=== PATIENT | male | born 1940 | race Caucasian/White ===

== ENCOUNTER → 2018-03-07 12:43 | Outpatient (CLI) | payer MEDICARE, SELFPAY ==
[2018-03-07 13:59] LABS: Absolute Lymphocyte Count 2.11 X10^3/ul (0.83-4.51); Absolute Neutrophil Count 2.1 X10^3/uL (2.0-7.7); Basophil# 0.02 X10^3/uL; Basophil% 0.4 % (0-1); Eosinophil# 0.12 X10^3/uL; Eosinophils% 2.4 % (0-5); Hematocrit 40.4 % (40-54); Hemoglobin 13.3 g/dl (13.0-16.5); Lymphocyte # 2.11 X10^3/ul (4.0); Lymphocyte % 42.5 % (19-41); Mean Corp Hgb Conc 32.9 g/gl (32-36); Mean Corpuscular Hgb 30.4 pg (27.0-32.0); Mean Corpuscular Volume 92.4 fL (80-94); Mean Platelet Vol. 9.1 fl (6.2-12.0); Monocyte# 0.65 X10^3/uL; Monocyte% 13.1 % (0-10); Neutrophil # 2.07 X10^3/uL (2.7-7.7); Neutrophil % 41.6 % (47-70); Platelet Count 349 K/mm3 (150-450); RBC Distribution Width CV 11.7 % (11.6-14.6); RBC Distribution Width SD 39.5 fl (35.1-43.9); Red Blood Count 4.37 M/mm3 (4.6-6.2)
[2018-03-07 14:05] LABS: POSITIVE COUNT NO; POSITIVE DIFFERENTIAL NO; POSITIVE MORPHOLOGY NO
[2018-03-07 14:11] LABS: Anion Gap 9 (5-15); BUN 23 mg/dL (7-18); BUN/Creat Ratio 24.5 RATIO (10-20); Calcium,Total 9.6 mg/dL (8.5-10.1); Chloride 104 mmol/L (98-107); Creatinine, Serum 0.94 mg/dL (0.70-1.30); EST Glomerular Filtration Rate 83 mL/min (>60); Est Glom Filt Rate - Afr Amer 100 mL/min (>60); Glucose 132 mg/dL (74-106); Potassium 4.8 mmol/L (3.5-5.1); Sodium Level 140 mmol/L (136-145)
== END ==
PROVIDERS: Visit Provider Physician Assistant Medical
DX: R06.00 Dyspnea, unspecified (principal); I48.91 Unspecified atrial fibrillation; R55 Syncope and collapse; I10 Essential (primary) hypertension
CPT/HCPCS: 36415; 80048; 85025

== ENCOUNTER → 2018-03-12 08:58 | Outpatient (CLI) | payer MEDICARE, SELFPAY | PROVIDERS: Visit Provider Physician Assistant Medical | DX: I48.91 Unspecified atrial fibrillation (principal); I10 Essential (primary) hypertension; R55 Syncope and collapse | CPT/HCPCS: 93225; 93226 ==

== ENCOUNTER → 2018-03-21 07:29 | Outpatient (CLI) | payer MEDICARE, SELFPAY | PROVIDERS: Visit Provider Physician Assistant Medical | DX: R55 Syncope and collapse (principal); I48.91 Unspecified atrial fibrillation; I10 Essential (primary) hypertension | CPT/HCPCS: 93880 ==

== ENCOUNTER → 2018-04-16 14:30 | Outpatient (CLI) | payer MEDICARE, SELFPAY ==
--- NOTE | 2018-04-16 14:32 | CT_ITS ---
STUDY: CTA NECK WITH CONTRAST REASON FOR EXAM: Male, 78 years old. Carotid stenosis RADIATION DOSAGE (If Supplied By Facility): CTDIvol = ( 21.78 ) mGy, DLP = ( 612.35 ) mGycm TECHNIQUE: CT angiography with multi-detector data acquisition was performed from the aortic arch to the skull base following intravenous administration of 100 ml of Isovue 370 contrast. MIP images were reconstructed from the axial data set. Post-processing of the angiographic images was performed, with multiplanar reformation and 3D reconstruction. Individualized dose optimization techniques were used for this CT. COMPARISON: None. FINDINGS: AORTIC ARCH: There is a normal-appearing takeoff of the innominate and the left carotid artery. The vertebral artery on the left side has its takeoff from the aorta. The left subclavian artery also has its takeoff from the aortic arch in its expected location. RIGHT CAROTID ARTERIES: There is atherosclerotic plaque formation of the common carotid artery, but without a hemodynamically significant stenosis. There is moderate atherosclerotic plaque formation with moderate narrowing of the right carotid bulb. There is mild atherosclerotic plaque formation of the origin of the right internal carotid artery with less than 50% cross sectional diameter stenosis. There is atherosclerotic tortuous elongation of the cervical portion of the right internal carotid artery. There is moderate atherosclerotic plaque formation of the origin of the right external carotid artery with an estimated stenosis of 50-69% stenosis. LEFT CAROTID ARTERIES: There is peripheral soft plaque concentrically around the lumen. There is plaque formation and soft plaque. There is trace contrast within the proximal internal carotid artery lumen with peripheral calcification and then subsequent obstruction. No contrast flow is seen throughout the left carotid artery. There is trace visualize contrast flowing through the left-sided petrous with flow in the left side cavernous carotid. Normal visualized cervical portion of the left internal carotid artery is obstructed. There is moderate atherosclerotic plaque formation of the origin of the left external carotid artery with an estimated stenosis of 50-69% stenosis. VERTEBRAL ARTERIES: As mentioned above the left-sided vertebral artery has its takeoff from the aorta appears to be well contrasted to the level of the foramen. There is a diminutive appearance of the distal left vertebral artery. There is partial calcification of the right-sided vertebral artery. There is good contrast enhancement of the basilar artery. There is a visualized right-sided P-comm well contrasted. The left side peak may be diminutive or not visualized. There is a diminutive appearance of the left-sided A1 segment. There is contrasted appearance of the bilateral MCA arteries. There is severe narrowing of the left-sided petrous carotid artery partially obstructed and partial obstruction of the distal left petrous and proximal left cavernous carotid artery. 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 Recommend dedicated MRI/MRA of the brain when appropriate. Less than 50% stenosis of the right internal carotid artery Bilateral atherosclerotic disease of the external carotid arteries Narrowed appearance of the distal left vertebral artery or dominant right vertebral artery. N.B. : The above information has been verbally conveyed by Jennifer Ansari MD to [facility] [phone], [facility], on 04/16/2018 16:47:18 (ET). Electronically Signed: Jennifer Ansari MD at 15:58 EDT Tel , Service support ,
== END ==
PROVIDERS: Visit Provider Surgery Vascular Surgery
DX: I65.23 Occlusion and stenosis of bilateral carotid arteries (principal)
CPT/HCPCS: 70498; Q9967

== ENCOUNTER → 2019-02-28 06:46 | Outpatient (CLI) | payer MEDICARE, SELFPAY ==
[2019-01-16 14:19] VITALS: BMI 36.1
[2019-02-28 07:41] LABS: AST(SGOT) 16 U/L (15-37); Alanine Aminotransfer ALT/SGPT 32 U/L (16-61); Albumin, Serum 3.9 g/dL (3.2-5.0); Alkaline Phosphatase 77 U/L (45-117); Anion Gap 8 (5-15); BUN 29 mg/dL (7-18); BUN/Creat Ratio 25.7 RATIO (10-20); Bilirubin, Direct 0.12 mg/dL (0.00-0.30); Calcium,Total 9.3 mg/dL (8.5-10.1); Chloride 106 mmol/L (98-107); Cholesterol 241 mg/dL (200); Creatinine, Serum 1.13 mg/dL (0.70-1.30); EST Glomerular Filtration Rate 67 mL/min (>60); Est Glom Filt Rate - Afr Amer 81 mL/min (>60); Globulin 3.8 g/dL (2.2-4.2); Glucose 126 mg/dL (74-106); High Density Lipoprotein 39 mg/dL; Potassium 4.9 mmol/L (3.5-5.1); Protein, Total 7.7 g/dL (6.4-8.2); Sodium Level 138 mmol/L (136-145); Triglycerides 282 mg/dL; Very Low Density Lipoprotein 56 mg/dL (5-40)
== END ==
PROVIDERS: Referring Provider Internal Medicine Cardiovascular Disease; Visit Provider Internal Medicine Cardiovascular Disease
DX: E11.9 Type 2 diabetes mellitus without complications (principal); E78.5 Hyperlipidemia, unspecified
CPT/HCPCS: 36415; 80048; 80061; 80076

== ENCOUNTER 2019-04-10 19:04 | Observation (INO) | payer MEDICARE, SELFPAY ==
[2019-01-16 14:19] VITALS: BMI 36.1
--- NOTE | 2019-04-10 19:03 | HP.PCM_ITS ---
Problem List (1) Chest pain Status: Acute Qualifiers: Chest pain type: unspecified Qualified Code(s): R07.9 - Chest pain, unspecified (2) Diabetes mellitus, type II Status: Chronic Qualifiers: Diabetes mellitus jail insulin use: without jail use Diabetes mellitus complication status: with other specified complication Qualified Code(s): E11.69 - Type 2 diabetes mellitus with other specified complication (3) Paroxysmal atrial fibrillation Status: Chronic (4) Essential hypertension Status: Chronic (5) RBBB (right bundle branch block) Status: Chronic (6) HLD (hyperlipidemia) Status: Chronic Qualifiers: Hyperlipidemia type: unspecified Qualified Code(s): E78.5 - Hyperlipidemia, unspecified History of Present Illness Date of Admission: 04/10/19 Chief Complaint: Chest pain The patient is a 79 y/o M w/ PMHx: HTN, HLD, Diabetes mellitus type II, PAF on eliquis s/p prior successful cardioversion following w/ ROBI Marin who presents to the [facility] as direct admission on 04/10/19 from [facility] ED with history of onset on day of presentation midsternal nonradiating chest tightness described at that time as 4 out of 10 in severity with no associated nausea, emesis, dyspnea or diaphoresis, resolving after minutes after falling his round of golf in the morning however it returned in the evening following dinner with similar presentation however the tightness was more severe rated 6 out of 10 at that time with radiation to the left shoulder and left scapular region prompting eventual ED presentation. Patient does now recall that in the past and intermittently he has had some mild chest tightness but not sure if it is related to activity and this is been ongoing for many years. Work-up in the outside hospital ED included T 36.6, heart rate 82, BP 157/70, respiratory rate 14, 96% on room air, CBC with W BC 8.2, hemoglobin 15, platelet 272 without shift, BMP with sodium 138, potassium 4.1, BUN/creatinine 27/2.22, glucose 180, < 0.020, CXR without acute cardiopulmonary findings, EKG w/ SR with T-wave inversions III, aVR, aVL, aVF with RBBB. In the ED OSH patient administered ASA, NS. Past Medical History Past Medical History (Chronic Problems): Chronic Problems (Last Reviewed 01/16/19 @ 14:22 by Carmina Corona) Diabetes mellitus, type II (Chronic) Paroxysmal atrial fibrillation (Chronic) Essential hypertension (Chronic) RBBB (right bundle branch block) (Chronic) HLD (hyperlipidemia) (Chronic) Medical History: Medical History (Last Reviewed 01/16/19 @ 14:22 by Carmina Corona) Paroxysmal atrial fibrillation (Acute) I48.0 Essential hypertension (Chronic) I10 RBBB (right bundle branch block) (Acute) I45.10 HLD (hyperlipidemia) (Chronic) E78.5 GERD (gastroesophageal reflux disease) K21.9 Type 2 diabetes mellitus E11.9 HTN (hypertension) (Inactive) I10 Persistent atrial fibrillation (Inactive) I48.1 Allergies influenza virus vaccine qs 2015- (36 months up) [From Fluarix Quad 0571-1788 (PF)] Allergy (Severe, Verified 01/16/19 14:19) Other INJECTION SITE REACTION, TOLD NOT TO GET AGAIN. hydrochlorothiazide Allergy (Unknown, Verified 01/16/19 14:19) Unknown Ftodumt-Xbe-Scr Reductase Inhibitor Adverse Reaction (Severe, Verified 01/16/19 14:19) myalgias allopurinol Adverse Reaction (Verified 01/16/19 14:19) Flu like symptoms Home Medications: Ambulatory Orders Medication Instructions Recorded Cholecalciferol (Vitamin D3) 1,000 unit PO DAILY 02/28/17 [Vitamin D3] Fish Oil/Borage/Flax/Om3,6,9 1 1 tab PO DAILY 02/28/17 [[place] 3-6-9 Complex Softgel] Melatonin 5 mg PO PRN PRN 02/28/17 Multivit-Min/FA/Lycopen/Lutein 1 ea PO DAILY 02/28/17 [Centrum Silver Tablet] Apixaban [Eliquis] 5 mg PO BID tab 03/02/17 Pantoprazole Sodium [Protonix] 40 mg PO DAILY tab 03/02/17 Acetaminophen [Pain Relief] 325 mg PO Q4H PRN 03/23/17 naproxen sodium 220 mg tablet 220 mg PO BID PRN 12/21/17 diltiazem CD 120 mg 120 mg PO BID #180 cap 08/30/18 capsule,extended release 24 hr lisinopril 20 mg tablet 20 mg PO BID #60 tab 02/12/19 colestipol 1 gram tablet 1 g PO BID #60 tab 03/01/19 flecainide 50 mg tablet 50 mg PO Q12H #180 tab 04/08/19 Surgical History: Surgical History (Last Reviewed 01/16/19 @ 14:22 by Carmina Corona) History of tonsillectomy Z90.89 Surgical History: - - Tonsillectomy. Psychiatric History: No pertinent psych hx Lives: Spouse/ Significant Other Smoking Status: Former smoker - Patient smoked very briefly in college, pipe use at that time, not since. Tobacco Use: Non-smoker Alcohol: None Drugs: None - *Family History Paternal Family History: Family History (Last Reviewed 01/16/19 @ 14:22 by Carmina Corona) Father CVA (cerebral vascular accident) Presence of permanent cardiac pacemaker Mother CVA (cerebral vascular accident) Diabetes History Items: Heart Disease, Stroke Maternal Family History: Family History (Last Reviewed 01/16/19 @ 14:22 by Carmina Corona) Father CVA (cerebral vascular accident) Presence of permanent cardiac pacemaker Mother CVA (cerebral vascular accident) Diabetes History Items: Diabetes, Stroke Review of Systems Constitutional: Reports: Anorexia - Patient notes that he has been drinking Gatorade today but has had decreased water intake and has had prolonged heat exposure playing golf., Malaise, Weakness, Fatigue. Denies: Chills, Fever, Weight Change HEENT: Denies: Head Aches, Sinus Congestion, Sinus Drainage Cardiovascular: Reports: Chest Pain, Chest Tightness. Denies: Palpitations Respiratory: Denies: Cough, Shortness of breath at rest, Sputum production Gastrointestinal: Denies: Abdominal Pain, Nausea, Vomiting Genitourinary: Denies: Dysuria Musculoskeletal: Denies: Joint Pain, Joint Tenderness Skin: Denies: Rash, Wounds Neurological: Denies: Numbness, Tingling, Focal weakness Psychiatric: Denies: Anxiety, Depression, Homicidal Ideations, Suicidal Ideations Hematologic/ Lymphatic: Reports: Easy Bruising, Easy Bleeding VTE Information - Inpt Only VTE Present on Admission: No VTE Mechan Device Prophylaxis: SCD's VTE Pharm Prophylaxis ordered?: No Reason prophylaxis not ordered:: Treatment Not Indicated - Continue home Eliquis regimen. Patient Problems: Active and Suspected Problems (Last Reviewed 01/16/19 @ 14:22 by Carmina Corona) Chest pain (Acute) Subjective: Seated upright in the PCU bed side chair, no acute distress, no current chest tightness. Objective: Physical Examination: General: awake, alert, oriented x 3 and cooperative, seated upright in the PCU bedside chair, no current chest tightness. Skin: Very tanned skin color, turgor, no icterus, cyanosis. HEENT: AT/NC, EOMI, PERRLA, widely dry MM, no carotid bruits or JVD noted. Lungs: CTA bilaterally, moderate effort, mild decrease BL bases, no rales, ronchi or wheezing. Heart: Regular rate and rhythm; no gallop, rub audible. Abdomen: soft, NTTP, ND, normal BS, no HSM. Extremities: no cyanosis, clubbing, or edema. Neurological: patient awake, alert, oriented x 3; cognitive function intact; pupils equally reactive to light and accomodation; cranial nerves II-XII grossly normal, moving all 4 extremities, no focal deficits, strength preserved. Psychiatric: affect appears normal, no acute evidence of depressive or anxiety feelings. - Physical Exam Body Mass Index (BMI) 36.1 Assessment/Plan All Active Problems (Last Reviewed 01/16/19 @ 14:22 by Carmina Corona) Chest pain (Acute) The patient is a 79 y/o M w/ PMHx: HTN, HLD, Diabetes mellitus type II, PAF on eliquis s/p prior successful cardioversion following w/ ROBI Marin who presents to the [facility] as direct admission on 04/10/19 from [facility]SH ED with history of onset on day of presentation midsternal nonradiating chest tightness described at that time as 4 out of 10 in severity with no associated nausea, emesis, dyspnea or diaphoresis, resolving after minutes after falling his round of golf in the morning however it returned in the evening following dinner with similar presentation however the tightness was more severe rated 6 out of 10 at that time with radiation to the left shoulder and left scapular region prompting eventual ED presentation. 1. Chest Pain: Work-up in the outside hospital ED included T 36.6, heart rate 82, BP 157/70, respiratory rate 14, 96% on room air, CBC with W BC 8.2, hemoglobin 15, platelet 272 without shift, BMP with sodium 138, potassium 4.1, BUN/creatinine 27/2.22, glucose 180, < 0.020, CXR without acute cardiopulmonary findings, EKG w/ SR with T-wave inversions III, aVR, aVL, aVF with RBBB. Will admit to PCU, place on a monitored bed to assure no acute myocardial infarction with serial cardiac enzymes and EKGs. Patient is unable to perform exercise clear to gout he notes thus will proceed with AM nuclear stress testing if the aforementioned evaluation remains stable and unchanged. ASA, NG, morphine. FLP in AM. Mag pending. 2. Acute kidney injury: Secondary to likely poor intake, heat exposure today. Admission BUN/Cr 27/2.22 with baseline prior noted to be normal. Will hydrate, hold nephrotoxic medications and repeat chemistry in AM. If no improvement would plan FeNa and renal ultrasound assessment. 3. Diabetes mellitus type II: Not on regimen, hemoglobin A1c requested, nutrition consultation for education and teaching, prior to n.p.o. we will continue ADA diet, accu checks w/ ISS. 4. PAF: Currently in sinus rhythm, continue home Eliquis, diltiazem, flecainide. 5. Hypertension: Continue home regimen including diltiazem, holding lisinopril given acute kidney injury, PRN hydralazine. 6. Hyperlipidemia: Not on regimen. FLP in a.m. 7. GERD: Continue home Protonix regimen. 8. DVT prophylaxis: SCDs, continue home Eliquis regimen. Code Visit OBSV E&M: 28009 Initial observation care L3
--- NOTE | 2019-04-10 19:04 | EKG12_ITS ---
Test Reason : CP ADMIT Blood Pressure : / mmHG Vent. Rate : 071 BPM Atrial Rate : 071 BPM P-R Int : 330 ms QRS Dur : 162 ms QT Int : 430 ms P-R-T Axes : 050 001 001 degrees QTc Int : 467 ms Sinus rhythm with 1st degree A-V block with Premature atrial complexes with Aberrant conduction or P VC Right bundle branch block Abnormal ECG When compared with ECG of 24-MAR-2017 12:47, Aberrant conduction is now Present Confirmed by SANDEEP STONE, JACI ([id number]), general expeditor LALA ARTHUR ([id number] on 04/15/2019 4:08:07 PM Referred By: Med Brown Confirmed By:VICKI HOPKINS MD
[2019-04-10 19:43] VITALS: BMI 37.2
[2019-04-10 19:52] VITALS: BMI 37.2
[2019-04-10 19:55] VITALS: PULSE 74
[2019-04-10] MEDS: 0.9% Normal Saline 1,000 ML 125 ML IV (20:02)
[2019-04-10 20:03] VITALS: BP 153/83; PULSE 76; RESP 18; TEMP 36.6; O2SAT 95
[2019-04-10 20:05] VITALS: O2SAT 95
[2019-04-10 20:36] VITALS: O2SAT 95
[2019-04-10 20:53] LABS: Magnesium 2.2 mg/dL (1.6-2.6)
[2019-04-10 21:15] LABS: Bedside Glucose 149 mg/dL (70-110)
[2019-04-10 21:16] LABS: Hemoglobin A1c 6.4 % (4.2-6.3)
[2019-04-11] VITALS (7 sets, daily range): BP systolic 151–174; BP diastolic 66–79; PULSE 58–76; RESP 16–18; TEMP 36.4–36.7; O2SAT 95–97
[2019-04-11 02:19] LABS: Absolute Lymphocyte Count 2.08 X10^3/uL (0.83-4.51); Absolute Neutrophil Count 2.2 X10^3/uL (2.0-7.7); Basophil# 0.03 X10^3/uL; Basophil% 0.6 % (0-1); Eosinophil# 0.17 X10^3/uL; Eosinophils% 3.3 % (0-5); Hematocrit 41.7 % (40-54); Hemoglobin 14.2 g/dL (13.0-16.5); Lymphocyte # 2.08 X10^3/ul (4.0); Lymphocyte % 40.5 % (19-41); Mean Corp Hgb Conc 34.1 g/dL (32-36); Mean Corpuscular Hgb 31.6 pg (27.0-32.0); Mean Corpuscular Volume 92.7 fL (80-94); Monocyte# 0.66 X10^3/uL; Monocyte% 12.8 % (0-10); NRBC Flagged by Analyzer 0 % (0-5); Neutrophil # 2.19 X10^3/uL (2.7-7.7); Neutrophil % 42.6 % (47-70); Platelet Count 228 K/mm3 (150-450); RBC Distribution Width SD 41.7 fl (35.1-43.9); White Blood Count 5.1 K/mm3 (4.4-11.0)
[2019-04-11 02:34] LABS: Anion Gap 5 (5-15); BUN 26 mg/dL (7-18); BUN/Creat Ratio 16.4 RATIO (10-20); Calcium,Total 8.8 mg/dL (8.5-10.1); Chloride 110 mmol/L (98-107); Cholesterol 208 mg/dL (200); Creatinine, Serum 1.59 mg/dL (0.70-1.30); EST Glomerular Filtration Rate 45 mL/min (>60); Est Glom Filt Rate - Afr Amer 54 mL/min (>60); Estimated Creatinine Clearance 37.67 ml/min; Glucose 124 mg/dL (74-106); High Density Lipoprotein 37 mg/dL; Potassium 3.9 mmol/L (3.5-5.1); Sodium Level 140 mmol/L (136-145); Triglycerides 161 mg/dL; Very Low Density Lipoprotein 32 mg/dL (5-40)
[2019-04-11] MEDS: hydrALAZINE 20 MG/ML Vial 10 MG IV (02:51)
[2019-04-11] MEDS: 0.9% NaCl Peripheral Flush Adult/Peds IV (02:52)
[2019-04-11] MEDS: 0.9% Normal Saline 1,000 ML 125 ML IV (04:02)
[2019-04-11] MEDS: Flecainide 100 MG Tablet 50 MG PO (05:33)
[2019-04-11] MEDS: Aspirin E.C. 81 MG Tablet PO (05:33)
[2019-04-11 05:46] LABS: Bedside Glucose 141 mg/dL (70-110)
--- NOTE | 2019-04-11 05:55 | EKG12_ITS ---
Test Reason : AM EKG Blood Pressure : / mmHG Vent. Rate : 057 BPM Atrial Rate : 057 BPM P-R Int : 294 ms QRS Dur : 180 ms QT Int : 466 ms P-R-T Axes : 052 003 -04 degrees QTc Int : 453 ms Sinus bradycardia with 1st degree A-V block with occasional Premature ventricular complexes Right bundle branch block Inferior infarct , age undetermined Abnormal ECG When compared with ECG of 10-APR-2019 19:58, MANUAL COMPARISON REQUIRED, DATA IS UNCONFIRMED Confirmed by SANDEEP STONE, JACI ([id number]), acquisitions editor LALA ARTHUR ([id number] on 04/15/2019 4:09:23 PM Referred By: Med Brown Confirmed By:VICKI HOPKINS MD
--- NOTE | 2019-04-11 08:56 | STRESSREP ---
Stress Test Report Date: [04/11/2019] Procedure: Pharmacologic stress nuclear imaging study Indications: Chest pain Consent: Per the patient Procedure: The patient underwent pharmacologic (Regadenoson) evaluation with a peak heart rate of 75 beats per minute (53 %predicted maximal heart rate) and a peak blood pressure of 148/78 mmHg. The baseline ECG demonstrated what appears to be wandering atrial pacemaker rhythm, right bundle-branch block. EKG during lexiscan infusion revealed no significant ischemic changes. EKG post infusion revealed no significant ischemic changes [There were no cardiac dysrhythmias pretest, during pharmacologic infusion, or recovery]. [There was no complaint of chest discomfort during pharmacologic infusion or recovery]. The examination was discontinued secondary to completion of protocol. Impression: 1. Lexiscan stress test test is negative for Lexiscan infusion induced EKG changes of ischemia. 2. Lexiscan stress test test is negative for Lexiscan infusion induced chest pain. 3. Results of the nuclear portion of the test is as below Myocardial perfusion imaging study: Technique: The patient was injected with 10.3 millicuries of technetium 99m Cardiolite and subsequently rest SPECT Cardiolite nuclear imaging was obtained in the horizontal long, vertical long, and short axis views. The patient underwent pharmacologic (Regadenoson) evaluation. Please see above for details. The patient was injected with 31.1 millicuries of technetium 99m Cardiolite and subsequently stress SPECT Cardiolite nuclear imaging was obtained in the horizontal long, vertical long, and short axis views. A gated Cardiolite study at peak stress was obtained. Interpretation: Rest and stress SPECT Cardiolite nuclear imaging status post realignment, normalization, and attenuation correction demonstrate overall normal myocardial radioisotope uptake. Gated images reveal no significant regional wall motion abnormalities. The reported LVEF is greater than 70 %. Impression: 1. There is no evidence of significant ischemia or infarction. 2. Estimated ejection fraction is greater than 70%. This note was generated with CPM Braxisation software. It may contain incorrect words, spelling, and punctuation that were not noted in checking the note before signing.
[2019-04-11] MEDS: APIXABAN 5 MG TABLET PO (10:38)
[2019-04-11] MEDS: dilTIAZem CD 120 MG Capsule PO (10:38)
[2019-04-11] MEDS: Pantoprazole Sodium 40 MG Tablet PO (10:38)
--- NOTE | 2019-04-11 11:07 | DCINST_ITS ---
- Discharge Diagnoses Current Active Problems: Current Active and Chronic Problems (Last Reviewed 01/16/19 @ 14:22 by Carmina Corona) 1. Musculoskeletal chest pain You will use the following diet at home:: Cardiac Discharge Activity: Return to Normal Activity Call your doctor if you observe: Shortness of breath, Dizziness, Fainting spells, Chest pain Additional Instructions: Repeat BMP on Monday as discussed. Follow up with PCP for results. Allergies/Adverse Reactions: Allergies influenza virus vaccine qs 2015- (36 months up) [From Fluarix Quad [id number] (PF)] Allergy (Severe, Verified 04/10/19 22:13) Other INJECTION SITE REACTION, TOLD NOT TO GET AGAIN. hydrochlorothiazide Allergy (Unknown, Verified 04/10/19 22:13) Unknown Jimynhn-Lvd-Msc Reductase Inhibitor Adverse Reaction (Severe, Verified 04/10/19 22:13) myalgias allopurinol Adverse Reaction (Verified 04/10/19 22:13) Flu like symptoms Medications to take at Discharge Fish Oil/Borage/Flax/Om3,6,9 1 [[place] 3-6-9 Complex Softgel] 1 tab PO DAILY 02/28/17 Melatonin 5 mg PO PRN PRN 02/28/17 Multivit-Min/FA/Lycopen/Lutein [Centrum Silver Tablet] 1 ea PO DAILY 02/28/17 Apixaban [Eliquis] 5 mg PO BID tab 03/02/17 Pantoprazole Sodium [Protonix] 40 mg PO DAILY tab 03/02/17 Acetaminophen [Pain Relief] 325 mg PO Q4H PRN PRN 03/23/17 naproxen sodium 220 mg tablet 220 mg PO BID PRN PRN 12/21/17 diltiazem CD 120 mg capsule,extended release 24 hr 120 mg PO BID #180 cap 08/30/18 lisinopril 20 mg tablet 20 mg PO BID #60 tab 02/12/19 flecainide 50 mg tablet 50 mg PO Q12H #180 tab 04/08/19 Cholecalciferol (Vitamin D3) [Vitamin D3] 10,000 unit PO DAILY 04/10/19 Metformin HCl [Metformin HCl ER] 500 mg PO DAILY 04/10/19 Orders to be completed after discharge: Basic Metabolic Profile (BMP) Time Frame: 3 Days, Facility: [facility], Location: Laboratory Primary Care Physician: Peng Smith [Primary Care Provider] - Please follow up with your Primary Care Physician in: As scheduled next Monday Test Results: Test results from this visit will be discussed in further detail at your follow- up appointment, if applicable. Please Follow Up With: Marcelo Yin MD When: As scheduled, december Proposed Discharge Date: 04/11/19
--- NOTE | 2019-04-11 11:13 | DS.PCM_ITS ---
<Oly Webb - Last Filed: 04/11/19 11:24> Discharge Date and Diagnosis Date of Admission: 04/10/19 Date of Discharge: 04/11/19 - Primary Discharge Diagnosis Active and Suspected Problems (Last Reviewed 01/16/19 @ 14:22 by Carmina Corona) 1. Musculoskeletal chest pain 2. Acute kidney injury 3. Hypertension 4. Hyperlipidemia 5. Chronic right bundle branch block 6. Type 2 diabetes mellitus 7. Paroxysmal atrial fibrillation 8. GERD - Secondary Discharge Diagnosis Chronic Problems (Last Reviewed 01/16/19 @ 14:22 by Carmina Corona) Diabetes mellitus, type II (Chronic) Paroxysmal atrial fibrillation (Chronic) Essential hypertension (Chronic) RBBB (right bundle branch block) (Chronic) HLD (hyperlipidemia) (Chronic) Hospital Course and Treatment Operations: None Procedures: Stress test Summary of Care Provided: The patient is a 79 year old M admitted 04/10/2019 due to chest pain. 1. Musculoskeletal chest pain-EKG sinus rhythm with right bundle branch block, T wave inversions lead III, aVR, aVL and aVF. Troponin negative. Patient underwent nuclear stress test which was negative for ischemia. Patient reports chest and shoulder discomfort began following 18 holes of golf. Pain is currently resolved. ACS ruled out. Follow-up with PCP as scheduled on Monday. Follow-up with cardiology for routine follow-up as scheduled. 2. Acute kidney injury-secondary to dehydration. Patient golfed 18 holes prior to admission on a hot day with minimal fluid intake. Creatinine improved from 2.2-1.5. Repeat BMP on Monday with further follow-up with primary care physician on Monday. 3. Hypertension-stable, continue home lisinopril regimen. 4. Hyperlipidemia-intolerance to statins. Continue home colestipol regimen. Not listed on home medication regimen however patient recently picked up 90-day supply from pharmacy in February. 5. Chronic right bundle branch block 6. Type 2 diabetes mellitus-on metformin. Hemoglobin A1c 6.4%. 7. Paroxysmal atrial fibrillation-continue Eliquis, Cardizem and flecainide regimen. 8. GERD-continue home PPI regimen. Patient seen and examined prior to discharge. Physical assessment as noted above. Patient is stable for discharge with follow up recommendations as noted above. This patient was seen by EVA Cope under the supervision of Dr. Mederos. - Physical Exam General: Alert, Oriented x3, Cooperative HEENT: Atraumatic, PERRLA, EOMI, Normocephalic Neck: Supple, No JVD, Negative Carotid Bruits Lungs: Clear to auscultation, Normal air movement Cardiovascular: Regular rate, Regular Rhythm, Normal S1, Normal S2, No murmurs Abdomen: Bowel Sounds Present, Soft, Non Tender, Non-Distended Extremities: No clubbing, No cyanosis, No edema, Capillary Refill Less than 3 Seconds Skin: No rashes, No breakdown Musculoskeletal: No Tenderness to Palpation of Joints or Extremities Neurological: Cranial nerves II-XII grossly intact, Neuro grossly intact Psych/Mental Status: Normal Affect, Appropriate Vital Signs Temp Pulse Resp BP Pulse Ox 97.7 F L 58 L 18 158/66 H 95 04/11/19 03:56 04/11/19 08:57 04/11/19 03:56 04/11/19 03:56 04/11/19 03:56 Oxygen Delivery Method Room Air Weight: 252 lb 3.341 oz Body Mass Index (BMI) 37.2 Intake and Output for Last 24 Hours 04/09/19 04/10/19 04/11/19 23:59 23:59 23:59 Intake Total 1855.42 / 1855.42 Balance 1855.42 / 1855.42 Laboratory Tests Past 24 Hrs 04/10/19 04/10/19 04/10/19 20:20 20:20 23:02 WBC RBC Hgb Hct MCV MCH MCHC RDW Std Deviation RDW Coeff of Partha Plt Count MPV Immature Gran % (Auto) Neut % (Auto) Lymph % (Auto) Vance % (Auto) Eos % (Auto) Baso % (Auto) Absolute Neuts (auto) Absolute Lymphs (auto) Nucleated RBC % Sodium Potassium Chloride Carbon Dioxide Anion Gap BUN Creatinine Estim Creat Clear Calc Est GFR (MDRD) Af Amer Est GFR (MDRD) Non-Af BUN/Creatinine Ratio Glucose Hemoglobin A1c 6.4 H Calcium Magnesium 2.2 Troponin I < 0.015 < 0.015 Triglycerides Cholesterol LDL Cholesterol VLDL Cholesterol HDL Cholesterol 04/11/19 04/11/19 04/11/19 02:05 02:05 02:05 WBC 5.1 RBC 4.50 L Hgb 14.2 Hct 41.7 MCV 92.7 MCH 31.6 MCHC 34.1 RDW Std Deviation 41.7 RDW Coeff of Partha 12.0 Plt Count 228 MPV 9.0 Immature Gran % (Auto) 0.200 Neut % (Auto) 42.6 L Lymph % (Auto) 40.5 Vance % (Auto) 12.8 H Eos % (Auto) 3.3 Baso % (Auto) 0.6 Absolute Neuts (auto) 2.2 Absolute Lymphs (auto) 2.08 Nucleated RBC % 0 Sodium 140 Potassium 3.9 Chloride 110 H Carbon Dioxide 25.0 Anion Gap 5 BUN 26 H Creatinine 1.59 H Estim Creat Clear Calc 37.67 Est GFR (MDRD) Af Amer 54 L Est GFR (MDRD) Non-Af 45 L BUN/Creatinine Ratio 16.4 Glucose 124 H Hemoglobin A1c Calcium 8.8 Magnesium Troponin I < 0.015 Triglycerides 161 Cholesterol 208 H LDL Cholesterol 139 H VLDL Cholesterol 32 HDL Cholesterol 37 L POC Glucose 04/11/19 04/10/19 05:37 21:10 POC Glucose 141 H 149 H Discharge Diet: Low fat/ Low Cholesterol, Carb Control Diet Discharge Activity: Return to Normal Activity Call your doctor if you observe: Shortness of breath, Dizziness, Fainting spells, Chest pain Home Medications: Medications to take at Discharge Fish Oil/Borage/Flax/Om3,6,9 1 [Underwood 3-6-9 Complex Softgel] 1 tab PO DAILY 02/28/17 Melatonin 5 mg PO PRN PRN 02/28/17 Multivit-Min/FA/Lycopen/Lutein [Centrum Silver Tablet] 1 ea PO DAILY 02/28/17 Apixaban [Eliquis] 5 mg PO BID tab 03/02/17 Pantoprazole Sodium [Protonix] 40 mg PO DAILY tab 03/02/17 Acetaminophen [Pain Relief] 325 mg PO Q4H PRN PRN 03/23/17 naproxen sodium 220 mg tablet 220 mg PO BID PRN PRN 12/21/17 diltiazem CD 120 mg capsule,extended release 24 hr 120 mg PO BID #180 cap 08/30/18 lisinopril 20 mg tablet 20 mg PO BID #60 tab 02/12/19 flecainide 50 mg tablet 50 mg PO Q12H #180 tab 04/08/19 Cholecalciferol (Vitamin D3) [Vitamin D3] 10,000 unit PO DAILY 04/10/19 Metformin HCl [Metformin HCl ER] 500 mg PO DAILY 04/10/19 Other Amb Orders: Basic Metabolic Profile (BMP) Time Frame: 3 Days, Facility: [facility], Location: Laboratory Primary Care Physician: Peng Smith [Primary Care Provider] - Please follow up with your Primary Care Physician in: As scheduled next Monday Please Follow Up With: Marcelo Yin MD When: As scheduled, december Disposition: Home Minutes spent on discharge:: 35 Patient Condition:: Stable Medical Necessity - Tobacco Use Smoking Status: Never smoker Tobacco Use: Non-smoker Meaningful Use Info Meaningful Use Diagnoses (Choose all that apply): None applicable <Scotty Mederos - Last Filed: 04/11/19 16:02> Discharge Date and Diagnosis - Secondary Discharge Diagnosis Chronic Problems (Last Reviewed 01/16/19 @ 14:22 by Carmina Corona) Diabetes mellitus, type II (Chronic) Paroxysmal atrial fibrillation (Chronic) Essential hypertension (Chronic) RBBB (right bundle branch block) (Chronic) HLD (hyperlipidemia) (Chronic) Hospital Course and Treatment Summary of Care Provided: [] This patient was seen in conjunction with LOGISTICS TECHNICIAN, Oly. I have independently interviewed and examined the patient and reviewed pertinent history, examination findings, laboratory and plan of management. I have reviewed the note and agree with the documented findings with the few additional points. In brief, patient is admitted for chest pain in PCU. Patient had serial troponin enzymes is negative. Patient had an EKG showed normal sinus rhythm with right bundle branch block, T wave inversion in lead III, aVR, aVL and aVF. Patient had Lexiscan nuclear stress test which came out negative for stress- induced ischemia. Seems patient had chest pain which mainly secondary to musculoskeletal. Acute coronary syndrome ruled out. Patient also had acute kidney injury most probably prerenal. Since patient was dehydrated with decreased oral fluid/water intake. Creatinine prior to admission was 2.2 and improved to 1.59. BUN 26. Patient was well dehydrated. Was advised to avoid dehydration. A1c 6.4. Fasting profile shows LDL 139, HDL 37. Total cholesterol 208. The patient is intolerance to statin. On home colestipol. Discharge medication reconciliation done. Discharge follow-up instructions completed. Discharge process discussed with the patient and all questions were answered to patient's satisfaction.. I have discussed my assessment with LOGISTICS TECHNICIANOly and orders have been reviewed. Laboratory Results 04/10/19 20:20: Magnesium 2.2, Troponin I < 0.015 04/10/19 20:20: Hemoglobin A1c 6.4 H 04/10/19 21:10: POC Glucose 149 H 04/10/19 23:02: Troponin I < 0.015 04/11/19 02:05: WBC 5.1, RBC 4.50 L, Hgb 14.2, Hct 41.7, MCV 92.7, MCH 31.6, MCHC 34.1, RDW Std Deviation 41.7, RDW Coeff of Partha 12.0, Plt Count 228, MPV 9.0, Immature Gran % (Auto) 0.200, Neut % (Auto) 42.6 L, Lymph % (Auto) 40.5, Vance % (Auto) 12.8 H, Eos % (Auto) 3.3, Baso % (Auto) 0.6, Absolute Neuts (auto) 2.2, Absolute Lymphs (auto) 2.08, Nucleated RBC % 0 04/11/19 02:05: Sodium 140, Potassium 3.9, Chloride 110 H, Carbon Dioxide 25.0, Anion Gap 5, BUN 26 H, Creatinine 1.59 H, Estim Creat Clear Calc 37.67, Est GFR (MDRD) Af Amer 54 L, Est GFR (MDRD) Non-Af 45 L, BUN/Creatinine Ratio 16.4, Glucose 124 H, Calcium 8.8, Triglycerides 161, Cholesterol 208 H, LDL Cholesterol 139 H, VLDL Cholesterol 32, HDL Cholesterol 37 L 04/11/19 02:05: Troponin I < 0.015 04/11/19 05:37: POC Glucose 141 H Subjective: Seen and examined. Patient admitted that he had 18-hole long golf play a day before admission. Denies shortness of breath. Chest pain has resolved. - Physical Exam General: Alert, Oriented x3, Cooperative HEENT: Atraumatic, PERRLA, EOMI, Normocephalic Neck: Supple, No JVD, Negative Carotid Bruits Lungs: Clear to auscultation, Normal air movement, No rhonchi, No wheeze, No rales Cardiovascular: Regular rate, Regular Rhythm, Normal S1, Normal S2, No murmurs Abdomen: Bowel Sounds Present, Soft, Non Tender, Non-Distended Extremities: No edema, Capillary Refill Less than 3 Seconds Skin: No rashes, No breakdown Musculoskeletal: No Tenderness to Palpation of Joints or Extremities, Arthritic Changes Neurological: Cranial nerves II-XII grossly intact, Deep Tendon Reflexes 2+/4 and Symmetrical, Neuro grossly intact, Motor Exam 5/5 strength throughout Psych/Mental Status: Normal Affect, Appropriate Vital Signs Temp Pulse Resp BP Pulse Ox 98.1 F 76 16 151/79 H 97 04/11/19 09:54 04/11/19 09:54 04/11/19 09:54 04/11/19 09:54 04/11/19 09:54 Oxygen Delivery Method Room Air Weight: 252 lb 3.341 oz Body Mass Index (BMI) 37.2 Intake and Output for Last 24 Hours 04/09/19 04/10/19 04/11/19 23:59 23:59 23:59 Intake Total 2335.42 / 2335.42 Balance 2335.42 / 2335.42 Laboratory Tests Past 24 Hrs 04/10/19 04/10/19 04/10/19 20:20 20:20 23:02 WBC RBC Hgb Hct MCV MCH MCHC RDW Std Deviation RDW Coeff of Partha Plt Count MPV Immature Gran % (Auto) Neut % (Auto) Lymph % (Auto) Vance % (Auto) Eos % (Auto) Baso % (Auto) Absolute Neuts (auto) Absolute Lymphs (auto) Nucleated RBC % Sodium Potassium Chloride Carbon Dioxide Anion Gap BUN Creatinine Estim Creat Clear Calc Est GFR (MDRD) Af Amer Est GFR (MDRD) Non-Af BUN/Creatinine Ratio Glucose Hemoglobin A1c 6.4 H Calcium Magnesium 2.2 Troponin I < 0.015 < 0.015 Triglycerides Cholesterol LDL Cholesterol VLDL Cholesterol HDL Cholesterol 04/11/19 04/11/19 04/11/19 02:05 02:05 02:05 WBC 5.1 RBC 4.50 L Hgb 14.2 Hct 41.7 MCV 92.7 MCH 31.6 MCHC 34.1 RDW Std Deviation 41.7 RDW Coeff of Partha 12.0 Plt Count 228 MPV 9.0 Immature Gran % (Auto) 0.200 Neut % (Auto) 42.6 L Lymph % (Auto) 40.5 Vance % (Auto) 12.8 H Eos % (Auto) 3.3 Baso % (Auto) 0.6 Absolute Neuts (auto) 2.2 Absolute Lymphs (auto) 2.08 Nucleated RBC % 0 Sodium 140 Potassium 3.9 Chloride 110 H Carbon Dioxide 25.0 Anion Gap 5 BUN 26 H Creatinine 1.59 H Estim Creat Clear Calc 37.67 Est GFR (MDRD) Af Amer 54 L Est GFR (MDRD) Non-Af 45 L BUN/Creatinine Ratio 16.4 Glucose 124 H Hemoglobin A1c Calcium 8.8 Magnesium Troponin I < 0.015 Triglycerides 161 Cholesterol 208 H LDL Cholesterol 139 H VLDL Cholesterol 32 HDL Cholesterol 37 L POC Glucose 04/11/19 04/10/19 05:37 21:10 POC Glucose 141 H 149 H Code Visit OBSV E&M: [id number] Observation care discharge
== END 2019-04-11 11:09 | disposition home or self-care (01) ==
PROVIDERS: Family Medicine; Admitting Provider Hospitalist; Referring Provider Hospitalist; Visit Provider Internal Medicine
DX: R07.89 Other chest pain (principal); E86.0 Dehydration; N17.9 Acute kidney failure, unspecified; E11.9 Type 2 diabetes mellitus without complications; I48.0 Paroxysmal atrial fibrillation; E78.5 Hyperlipidemia, unspecified; I10 Essential (primary) hypertension; I45.10 Unspecified right bundle-branch block; K21.9 Gastro-esophageal reflux disease without esophagitis; R94.31 Abnormal electrocardiogram [ECG] [EKG]; Z79.899 Other long term (current) drug therapy; Z79.01 Long term (current) use of anticoagulants; Z79.84 Long term (current) use of oral hypoglycemic drugs; Z87.891 Personal history of nicotine dependence
CPT/HCPCS: 36415; 78452; 80048; 80061; 82962; 83036; 83735; 84484; 85025; 93005; 93017; 96361; 96374; 97802; 99218; A9500; J7030; A4216; G0378; G0379; J2785

== ENCOUNTER → 2020-03-27 07:24 | Outpatient (CLI) | payer MEDICARE, SELFPAY ==
[2020-02-07 09:30] VITALS: BMI 36.9
[2020-03-27 08:47] LABS: AST(SGOT) 38 U/L (15-37); Alanine Aminotransfer ALT/SGPT 66 U/L (16-61); Alkaline Phosphatase 73 U/L (45-117); Anion Gap 8 (5-15); BUN 26 mg/dL (7-18); BUN/Creat Ratio 23.6 RATIO (10-20); Bilirubin, Direct 0.13 mg/dL (0.00-0.30); Calcium,Total 9.1 mg/dL (8.5-10.1); Chloride 106 mmol/L (98-107); Cholesterol 123 mg/dL (200); EST Glomerular Filtration Rate 68 mL/min (>60); Est Glom Filt Rate - Afr Amer 83 mL/min (>60); Globulin 3.3 g/dL (2.2-4.2); Glucose 123 mg/dL (74-106); High Density Lipoprotein 38 mg/dL; Potassium 4.4 mmol/L (3.5-5.1); Protein, Total 7.3 g/dL (6.4-8.2); Sodium Level 137 mmol/L (136-145); Triglycerides 141 mg/dL; Very Low Density Lipoprotein 28 mg/dL (5-40)
[2020-03-27 08:48] LABS: Hemoglobin A1c 6.3 % (3.8-5.6)
== END ==
PROVIDERS: Referring Provider Internal Medicine Cardiovascular Disease; Visit Provider Internal Medicine Cardiovascular Disease
DX: E11.9 Type 2 diabetes mellitus without complications (principal); E78.5 Hyperlipidemia, unspecified
CPT/HCPCS: 36415; 80048; 80061; 80076; 83036

== ENCOUNTER → 2020-09-24 06:54 | Outpatient (CLI) | payer MEDICARE, SELFPAY ==
[2020-02-07 09:30] VITALS: BMI 36.9
[2020-09-24 07:19] LABS: Hematocrit 44.4 % (40-54); Hemoglobin 14.9 g/dL (13.0-16.5); Mean Corp Hgb Conc 33.6 g/dL (32-36); Mean Corpuscular Hgb 30.8 pg (27.0-32.0); Mean Corpuscular Volume 91.9 fL (80-94); Platelet Count 251 K/mm3 (150-450); RBC Distribution Width CV 11.9 % (11.6-14.6); RBC Distribution Width SD 40.1 fl (35.1-43.9); Red Blood Count 4.83 M/mm3 (4.6-6.2); White Blood Count 5.4 K/mm3 (4.4-11.0)
[2020-09-24 07:48] LABS: Hemoglobin A1c 6.3 % (3.8-5.6)
[2020-09-24 08:13] LABS: AST(SGOT) 21 U/L (15-37); Alanine Aminotransfer ALT/SGPT 41 U/L (16-61); Albumin, Serum 3.7 g/dL (3.2-5.0); Alkaline Phosphatase 71 U/L (45-117); Anion Gap 7 (5-15); BUN 18 mg/dL (7-18); BUN/Creat Ratio 15.8 RATIO (10-20); Bilirubin, Direct 0.14 mg/dL (0.00-0.30); Calcium,Total 8.8 mg/dL (8.5-10.1); Chloride 104 mmol/L (98-107); Cholesterol 117 mg/dL (200); Creatinine, Serum 1.14 mg/dL (0.70-1.30); EST Glomerular Filtration Rate 66 mL/min (>60); Est Glom Filt Rate - Afr Amer 79 mL/min (>60); Globulin 3.5 g/dL (2.2-4.2); Glucose 167 mg/dL (74-106); High Density Lipoprotein 44 mg/dL; Potassium 4.4 mmol/L (3.5-5.1); Protein, Total 7.2 g/dL (6.4-8.2); Sodium Level 135 mmol/L (136-145); Triglycerides 177 mg/dL; Uric Acid 9.6 mg/dL (3.5-7.2); Very Low Density Lipoprotein 35 mg/dL (5-40)
[2020-09-24 08:17] LABS: Vitamin D,25 Hydroxy 98.6 ng/mL
== END ==
PROVIDERS: Internal Medicine Cardiovascular Disease
DX: I10 Essential (primary) hypertension (principal); E11.9 Type 2 diabetes mellitus without complications; E78.5 Hyperlipidemia, unspecified; M10.9 Gout, unspecified
CPT/HCPCS: 36415; 80048; 80061; 80076; 82306; 83036; 84550; 85027

== ENCOUNTER → 2021-01-28 06:32 | Outpatient (CLI) | payer MEDICARE, SELFPAY ==
[2021-01-25 10:20] VITALS: BMI 37.9
[2021-01-28 07:33] LABS: Hematocrit 43.1 % (40-54); Hemoglobin 14.8 g/dL (13.0-16.5); Mean Corp Hgb Conc 34.3 g/dL (32-36); Mean Corpuscular Hgb 31.7 pg (27.0-32.0); Mean Corpuscular Volume 92.3 fL (80-94); Mean Platelet Vol. 9.7 fl (6.2-12.0); Platelet Count 259 K/mm3 (150-450); RBC Distribution Width CV 12.4 % (11.6-14.6); Red Blood Count 4.67 M/mm3 (4.6-6.2); White Blood Count 4.9 K/mm3 (4.4-11.0)
[2021-01-28 07:59] LABS: AST(SGOT) 36 U/L (15-37); Alanine Aminotransfer ALT/SGPT 65 U/L (16-61); Albumin, Serum 3.8 g/dL (3.2-5.0); Alkaline Phosphatase 71 U/L (45-117); Anion Gap 7 (5-15); BUN 18 mg/dL (7-18); BUN/Creat Ratio 16.5 RATIO (10-20); Bilirubin, Direct 0.19 mg/dL (0.00-0.30); Calcium,Total 8.9 mg/dL (8.5-10.1); Chloride 107 mmol/L (98-107); Cholesterol 122 mg/dL (200); Creatinine, Serum 1.09 mg/dL (0.70-1.30); EST Glomerular Filtration Rate 69 mL/min (>60); Est Glom Filt Rate - Afr Amer 84 mL/min (>60); Globulin 3.4 g/dL (2.2-4.2); Glucose 148 mg/dL (74-106); High Density Lipoprotein 39 mg/dL; Potassium 4.2 mmol/L (3.5-5.1); Protein, Total 7.2 g/dL (6.4-8.2); Sodium Level 138 mmol/L (136-145); Triglycerides 174 mg/dL; Uric Acid 9.5 mg/dL (3.5-7.2); Very Low Density Lipoprotein 35 mg/dL (5-40)
[2021-01-28 08:05] LABS: Microalbumin,Random Urine 9.4 mg/L (NO RANGE EST.); Microalbumin:Creatinine Ratio 12.9 mg/g CRE (<30 mg/g CRE)
== END ==
DX: M10.9 Gout, unspecified (principal); E78.2 Mixed hyperlipidemia; E11.69 Type 2 diabetes mellitus with other specified complication; I10 Essential (primary) hypertension
CPT/HCPCS: 36415; 80048; 80061; 80076; 82043; 82570; 84550; 85027

== ENCOUNTER → 2021-05-17 07:26 | Outpatient (CLI) | payer MEDICARE, SELFPAY ==
[2021-05-17 08:31] LABS: Hemoglobin A1c 6.2 % (3.8-5.6)
[2021-05-17 08:49] LABS: AST(SGOT) 28 U/L (15-37); Alanine Aminotransfer ALT/SGPT 65 U/L (16-61); Albumin, Serum 3.7 g/dL (3.2-5.0); Alkaline Phosphatase 62 U/L (45-117); Anion Gap 8 (5-15); BUN 19 mg/dL (7-18); BUN/Creat Ratio 16.5 RATIO (10-20); Bilirubin, Direct 0.17 mg/dL (0.00-0.30); Calcium,Total 9.4 mg/dL (8.5-10.1); Chloride 107 mmol/L (98-107); Cholesterol 134 mg/dL (200); Creatinine, Serum 1.15 mg/dL (0.70-1.30); EST Glomerular Filtration Rate 65 mL/min (>60); Est Glom Filt Rate - Afr Amer 78 mL/min (>60); Globulin 3.5 g/dL (2.2-4.2); Glucose 148 mg/dL (74-106); High Density Lipoprotein 40 mg/dL; Potassium 4.3 mmol/L (3.5-5.1); Protein, Total 7.2 g/dL (6.4-8.2); Sodium Level 138 mmol/L (136-145); Triglycerides 156 mg/dL; Uric Acid 9.8 mg/dL (3.5-7.2); Very Low Density Lipoprotein 31 mg/dL (5-40)
== END ==
DX: I10 Essential (primary) hypertension (principal); E78.2 Mixed hyperlipidemia; E11.69 Type 2 diabetes mellitus with other specified complication; E66.01 Morbid (severe) obesity due to excess calories; M10.9 Gout, unspecified
CPT/HCPCS: 36415; 80048; 80061; 80076; 83036; 84550

== ENCOUNTER → 2022-01-10 | Outpatient (CLI) | payer MEDICARE, SELFPAY ==
[2022-01-10 09:24] LABS: AST(SGOT) 32 U/L (15-37); Alanine Aminotransfer ALT/SGPT 63 U/L (16-61); Albumin, Serum 3.8 g/dL (3.2-5.0); Alkaline Phosphatase 68 U/L (45-117); Anion Gap 7 (5-15); BUN 17 mg/dL (7-18); BUN/Creat Ratio 15.3 RATIO (10-20); Bilirubin, Direct 0.19 mg/dL (0.00-0.30); Calcium,Total 9.7 mg/dL (8.5-10.1); Chloride 104 mmol/L (98-107); Cholesterol 116 mg/dL (200); Creatinine, Serum 1.11 mg/dL (0.70-1.30); EST Glomerular Filtration Rate 67 mL/min (>60); Est Glom Filt Rate - Afr Amer 82 mL/min (>60); Globulin 3.3 g/dL (2.2-4.2); Glucose 153 mg/dL (74-106); High Density Lipoprotein 39 mg/dL; Potassium 4.2 mmol/L (3.5-5.1); Protein, Total 7.1 g/dL (6.4-8.2); Sodium Level 135 mmol/L (136-145); Triglycerides 175 mg/dL; Uric Acid 8.2 mg/dL (3.5-7.2); Very Low Density Lipoprotein 35 mg/dL (5-40)
[2022-01-10 09:55] LABS: Microalbumin,Random Urine 22.9 mg/L (NO RANGE EST.)
== END | disposition home or self-care (01) ==
LOC: LAB 08:29
DX: E11.69 Type 2 diabetes mellitus with other specified complication (principal); E66.01 Morbid (severe) obesity due to excess calories; I10 Essential (primary) hypertension; E78.2 Mixed hyperlipidemia; M10.9 Gout, unspecified
CPT/HCPCS: 36415; 80048; 80061; 80076; 82043; 84550

== ENCOUNTER → 2023-01-09 | Outpatient (CLI) | payer MEDICARE, SELFPAY ==
[2023-01-09 08:52] LABS: Hemoglobin A1c 6.9 % (3.8-5.6)
[2023-01-09 09:05] LABS: ALB/GLOB Ratio 1.2 RATIO (0.9-2.4); AST(SGOT) 26 U/L (15-37); Alanine Aminotransfer ALT/SGPT 40 U/L (16-61); Albumin, Serum 3.9 g/dL (3.2-5.0); Alkaline Phosphatase 67 U/L (45-117); Anion Gap 8 (5-15); BUN 21 mg/dL (7-18); BUN/Creat Ratio 18.9 RATIO (10-20); Calcium,Total 9.3 mg/dL (8.5-10.1); Chloride 107 mmol/L (98-107); Cholesterol 97 mg/dL (200); Creatinine, Serum 1.11 mg/dL (0.70-1.30); EST Glomerular Filtration Rate 67 mL/min (>60); Est Glom Filt Rate - Afr Amer 81 mL/min (>60); Globulin 3.2 g/dL (2.2-4.2); Glucose 155 mg/dL (74-106); High Density Lipoprotein 42 mg/dL; Potassium 4.4 mmol/L (3.5-5.1); Protein, Total 7.1 g/dL (6.4-8.2); Sodium Level 138 mmol/L (136-145); Triglycerides 179 mg/dL; Uric Acid 8.5 mg/dL (3.5-7.2); Very Low Density Lipoprotein 36 mg/dL (5-40)
== END | disposition home or self-care (01) ==
PROVIDERS: Referring Provider Physician Assistant Medical; Visit Provider Physician Assistant Medical
DX: I48.0 Paroxysmal atrial fibrillation (principal); E11.69 Type 2 diabetes mellitus with other specified complication; I10 Essential (primary) hypertension; E78.2 Mixed hyperlipidemia; M10.9 Gout, unspecified
CPT/HCPCS: 36415; 80053; 80061; 83036; 84550; 93225; 93226

== ENCOUNTER → 2023-04-05 | Outpatient (CLI) | payer MEDICARE, SELFPAY ==
[2023-04-05 11:12] LABS: Absolute Lymphocyte Count 2.51 X10^3/uL (0.83-4.51); Absolute Neutrophil Count 2.3 X10^3/uL (2.0-7.7); Basophil# 0.03 X10^3/uL; Basophil% 0.5 % (0-1); Eosinophils% 3.6 % (0-5); Hemoglobin 15.5 g/dL (13.0-16.5); Lymphocyte # 2.51 X10^3/ul (0.83-4.51); Mean Corp Hgb Conc 34.4 g/dL (32-36); Mean Platelet Vol. 9.9 fl (6.2-12.0); Monocyte# 0.57 X10^3/uL; Monocyte% 10.2 % (0-10); NRBC Flagged by Analyzer 0 % (0-5); Neutrophil # 2.26 X10^3/uL (2.7-7.7); Neutrophil % 40.5 % (47-70); Platelet Count 205 K/mm3 (150-450); RBC Distribution Width CV 12.3 % (11.6-14.6); RBC Distribution Width SD 42.3 fl (35.1-43.9); Red Blood Count 4.84 M/mm3 (4.6-6.2); White Blood Count 5.6 K/mm3 (4.4-11.0)
[2023-04-05 11:41] LABS: ALB/GLOB Ratio 1.2 RATIO (0.9-2.4); AST(SGOT) 38 U/L (15-37); Alanine Aminotransfer ALT/SGPT 75 U/L (16-61); Albumin, Serum 3.8 g/dL (3.2-5.0); Alkaline Phosphatase 77 U/L (45-117); Anion Gap 7 (5-15); BUN 24 mg/dL (7-18); BUN/Creat Ratio 20.2 RATIO (10-20); Calcium,Total 9.2 mg/dL (8.5-10.1); Chloride 108 mmol/L (98-107); Creatinine, Serum 1.19 mg/dL (0.70-1.30); EST Glomerular Filtration Rate 62 mL/min (>60); Est Glom Filt Rate - Afr Amer 75 mL/min (>60); Globulin 3.3 g/dL (2.2-4.2); Glucose 143 mg/dL (74-106); Potassium 4.3 mmol/L (3.5-5.1); Protein, Total 7.1 g/dL (6.4-8.2); Sodium Level 138 mmol/L (136-145); Thyroid Stim Hormone (TSH) 1.75 uIU/mL (0.358-3.74)
== END | disposition home or self-care (01) ==
PROVIDERS: Referring Provider Physician Assistant Medical; Visit Provider Physician Assistant Medical
DX: R07.9 Chest pain, unspecified (principal); R53.83 Other fatigue; E78.5 Hyperlipidemia, unspecified
CPT/HCPCS: 36415; 80053; 84443; 85025

== ENCOUNTER → 2023-04-14 | Outpatient (CLI) | payer MEDICARE, SELFPAY ==
--- NOTE | 2023-04-14 09:44 | ECHOCS_ITS ---
Reason For Study: CHEST PAIN Procedure This was a 2D Doppler, Color Flow transthoracic echocardiogram. The study was technically difficult. Contrast injection was performed. Exam performed in department. Left Ventricle Normal LV size. Left ventricular systolic function is normal. The estimated ejection fraction is 60 %. No regional wall motion abnormalities noted. Right Ventricle Normal RV size. Normal systolic function. Atria The left atrium is moderately enlarged. The right atrium is moderately enlarged. Bubble contrast study negative for right to left interatrial shunt. Aortic Valve Trisinus/trileaflet aortic valve. Great Vessels Normal aortic root. Pericardium/Pleural No pericardial effusion. Medication 22 gauge I.V. with prn adaptor inserted into right arm. Diluted definity 3ml given slow IV push to enhance endocardial definition. Performed a rapid injection of agitated mix of 9 cc saline and 1cc air to assess for atrial septal defect. MMode/2D Measurements & Calculations Ao root diam: 3.2 cm LAV(MOD-bp): 90.9 ml LVAd ap4: 37.6 cm2 LAV(MOD-bp) Indexed: 39.2 ml/m2 LVLd ap4: 8.7 cm LAV(MOD-sp2): 61.7 ml EDV(MOD-sp4): 132.9 ml LAV(MOD-sp4): 113.6 ml EDV(sp4-el): 138.0 ml LVAs ap4: 25.3 cm2 LVLs ap4: 7.7 cm ESV(MOD-sp4): 71.4 ml ESV(sp4-el): 70.4 ml EF(MOD-sp4): 46.3 % EF(sp4-el): 49.0 % SV(MOD-sp4): 61.6 ml SV(sp4-el): 67.6 ml LA A4 area: 31.1 cm2 LA dimension(2D): 5.5 cm RA A4 area: 25.1 cm2 TAPSE: 2.6 cm Time Measurements MV dec time: 0.16 sec Doppler Measurements & Calculations MV E max vignesh: 104.5 cm/sec MV V2 max: 117.8 cm/sec Ao V2 max: 121.5 cm/sec MV max P.6 mmHg Ao max P.9 mmHg MV V2 mean: 61.5 cm/sec Ao V2 mean: 86.8 cm/sec MV mean P.9 mmHg Ao mean P.4 mmHg MV V2 VTI: 25.6 cm Ao V2 VTI: 26.4 cm AV (velocity ratio): 0.60 LV V1 max: 94.7 cm/sec LV V1 max P.6 mmHg LV V1 mean P.8 mmHg LV V1 mean: 60.8 cm/sec LV V1 VTI: 15.9 cm ECHO/Echo Complete W/ Contrast Interpretation Summary Normal LV size. Left ventricular systolic function is normal. The estimated ejection fraction is 60 %. Bubble contrast study negative for right to left interatrial shunt. The left atrium is moderately enlarged. Contrast injection was performed. Ordering Physician: Carmina Sainz Referring Physician: Carmina Sainz Performed By: Aileen Kulkarni RCS
== END | disposition home or self-care (01) ==
LOC: CVS 09:41
PROVIDERS: Referring Provider Physician Assistant Medical; Visit Provider Physician Assistant Medical
DX: I48.0 Paroxysmal atrial fibrillation (principal)
CPT/HCPCS: 93306; Q9957; A4216; C8929

== ENCOUNTER → 2023-04-20 | Outpatient (CLI) | payer MEDICARE, SELFPAY ==
--- NOTE | 2023-04-21 15:34 | STRESSREP ---
Stress Test Report Pharmacologic myocardial perfusion stress test. 83-year-old man with a history of chest pain and fatigue Resting EKG demonstrates atrial fibrillation rhythm with a right bundle branch block with a rate of 69 bpm. Resting blood pressure is 152/86 mmHg. 0.4 mg of regadenoson was infused per usual protocol followed by rapid intravenous saline flush injection. Continuous EKG monitoring was performed. The maximum heart rate was 74 bpm which was 50% of max impacted heart rate the maximum workload was 1 metabolic equivalent. At rest there were no ST or T wave changes noted to suggest ischemia and at peak infusion nonspecific ST changes were noted which did not meet the criteria for ischemia. No clinical angina is noted. The final blood pressure was 130/78 mmHg. Myocardial perfusion protocol. 15.0 mCi of technetium 99m sestamibi was injected at rest. 0.4 mg of regadenoson was infused per usual protocol. At peak infusion 44.4 mCi of technetium 99m sestamibi was injected stress images were obtained stress and rest images were reconstructed and compared in the short axis vertical long and horizontal long axis. Gated images were also obtained. Perfusion SPECT analysis: Review of the stress images demonstrate normal uptake of tracer noted in all areas of the myocardium. The resting images similar demonstrated normal uptake of tracer noted in all areas of the myocardium. No areas of reversibility are noted to suggest ischemia and no previous infarct is noted. Gated SPECT analysis: The gated ejection fraction is 68. Conclusion: Normal pharmacologic myocardial perfusion stress test. Preserved ejection fraction.
== END | disposition home or self-care (01) ==
LOC: CVS 06:32
PROVIDERS: Referring Provider Physician Assistant Medical; Visit Provider Physician Assistant Medical
DX: R07.9 Chest pain, unspecified (principal); R53.83 Other fatigue
CPT/HCPCS: 78452; 93017; A9500; J2785

== ENCOUNTER 2023-05-04 10:19 | Day surgery (SDC) | payer MEDICARE, SELFPAY ==
--- NOTE | 2023-04-26 08:00 | RAD_ITS ---
INDICATION: for Cardioversion EXAMINATION/TECHNIQUE: X-RAY - XR Chest 2 Views COMPARISON: February 28, 2017 FINDINGS: LINES/DEVICES: None. LUNGS: No consolidation, edema or effusion. There is a nodular density or possible focal mamillation of the left hemidiaphragm. This is similar to the previous study. No pneumothorax. MEDIASTINUM AND CARDIOVASCULAR STRUCTURES: Cardiac silhouette not enlarged. Central airways and mediastinal contour are unremarkable. BONES AND SOFT TISSUES: Degenerative vertebral changes. RAD/Chest PA and Lateral IMPRESSION: No radiographic evidence of acute cardiopulmonary disease. Electronically Signed: Luis E Garza DO at 17:16 EDT Reading Location ID and State: [facility] / [place] Tel [phone], Service support ,
[2023-05-02 09:21] VITALS: BMI 37.0
--- NOTE | 2023-05-04 11:43 | EKG12_ITS ---
Test Reason : POST DCCV Blood Pressure : / mmHG Vent. Rate : 069 BPM Atrial Rate : 069 BPM P-R Int : 324 ms QRS Dur : 160 ms QT Int : 426 ms P-R-T Axes : 058 032 -12 degrees QTc Int : 456 ms Sinus rhythm with 1st degree A-V block with Premature supraventricular complexes Right bundle branch block T wave abnormality, consider inferior ischemia Abnormal ECG When compared with ECG of 04-MAY-2023 10:09, MANUAL COMPARISON REQUIRED, DATA IS UNCONFIRMED Confirmed by JONAS STONE, JOSE ([id number]), purchasing expeditor RAPHAEL SCHMID ([id number]) on 05/16/2023 1:12:22 PM Referred By: Jose Gayle Confirmed By:JOSE GAYLE MD
--- NOTE | 2023-05-04 12:20 | PCM.OP.PRO ---
Procedure Report Date of Procedure: 05/04/23 CONSCIOUS SEDATION REPORT DATE OF SERVICE: May 04, 2023 BRIEF HISTORY OF PRESENT ILLNESS: The patient is an 83-year-old male who presented to [facility] for elective outpatient cardioversion due to underlying atrial fibrillation. The patient is systemically anticoagulated on Eliquis. His last surface echocardiogram demonstrated an ejection fraction of approximately 60%. He denied any prior anesthetic complications. The patient has never been diagnosed with obstructive sleep apnea. PHYSICAL EXAMINATION: VITAL SIGNS: Reviewed and were acceptable. GENERAL: The patient is an obese male, in no apparent distress, speaking in full sentences. HEENT: Normocephalic, atraumatic. Mucous membranes are moist and pink. Good mouth opening noted. Trachea is midline. Good neck mobility. CHEST: S1, S2 irregularly irregular. No murmurs, rubs or gallops were noted. LUNGS: Clear to auscultation bilaterally without appreciable wheezes, rales or rhonchi. ABDOMEN: Soft, nontender, nondistended. Positive bowel sounds. EXTREMITIES: There is no clubbing, cyanosis or edema. ASA Class: II DESCRIPTION OF PROCEDURE: After confirmation of informed consent, the patient's anesthesia plan was reviewed in detail. Propofol was chosen. Risks and benefits were reviewed and the patient agreed to proceed. At 1209, the patient was given 40 mg of propofol. The patient achieved an appropriate level of sedation and was given a 200 joule synchronized cardioversion by Dr. Gayle at the bedside. This was successful in achieving normal sinus rhythm. The patient was monitored until 1220, at which time he reached his baseline mental status and function. The patient tolerated the procedure well. COMPLICATIONS: None ESTIMATED BLOOD LOSS: None RECOMMENDATIONS: Okay to recover in usual fashion.
--- NOTE | 2023-05-04 12:25 | PRO.PCM_ITS ---
Procedure Report Date of Procedure: 05/04/23 DC cardioversion. 83-year-old man with a history of atrial fibrillation who has been on antic oagulation. Patient says that he has been symptomatic and wanted to be cardioverted or ablated. After informed consent was obtained the patient was brought to cardiac catheterization lab and seen by Dr. Rojas of the critical care division. Anterior-posterior pads were applied. The patient was administered 40 mg of intravenous propofol. 200 J of synchronized biphasic DC cardioversion energy were applied with prompt reversal to sinus rhythm. Patient tolerated the procedure well. EKG demonstrated sinus rhythm with a right bundle branch block. Conclusion: Successful DC cardioversion from atrial fibrillation to sinus rhythm. Reduce diltiazem to 220 mg a day. DC flecainide Start amiodarone 200 mg a day Follow-up as per office protocol.
== END 2023-05-04 13:10 | disposition home or self-care (01) ==
PROVIDERS: Referring Provider Internal Medicine Cardiovascular Disease; Visit Provider Internal Medicine Cardiovascular Disease
DX: I48.19 Other persistent atrial fibrillation (principal); E11.9 Type 2 diabetes mellitus without complications; K21.9 Gastro-esophageal reflux disease without esophagitis; E78.5 Hyperlipidemia, unspecified; I10 Essential (primary) hypertension; E66.9 Obesity, unspecified; Z79.84 Long term (current) use of oral hypoglycemic drugs; Z79.899 Other long term (current) drug therapy; Z79.01 Long term (current) use of anticoagulants
CPT/HCPCS: 71046; 92960; 93005; J7040